=== PATIENT | female | born 2005 | race Caucasian/White ===

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

== ENCOUNTER 2023-01-25 18:07 | Emergency (ER) | payer BC, SELFPAY ==
[2023-01-25 18:20] VITALS: BP 129/83; PULSE 83; RESP 20; TEMP 37.1; O2SAT 98; BMI 25.0
[2023-01-25 18:34] LABS: UTC Strep Screen (Rapid) Negative (Negative)
--- NOTE | 2023-01-25 18:43 | EXP.UTC ---
Discharge Plan Disposition Patient Disposition: Home, Self-Care Condition: Good Prescriptions Prescriptions: New cephalexin 250 mg/5 mL suspension for reconstitution 500 mg PO BID 5 Days Qty: 100 0RF Rx Instructions: was given a take home bottle for the first 5 days- take this after finishing the bottle given to her at [facility] No Action omeprazole 40 mg capsule,delayed release(DR/EC) 40 mg PO DAILY Patient Comments: TAKE 1 CAPSULE BY MOUTH ONCE DAILY bupropion HCl 150 mg tablet extended release 24 hr 150 mg PO DAILY Patient Comments: TAKE 1 TABLET BY MOUTH ONCE DAILY Referrals Follow up/Referrals: Boo Major MD [Primary Care Provider] - See instructions Activity Restrictions/Add. Instructions Additional Instructions/Restrictions: Increase fluids, water and not soda or tea. Can drink cranberry juice or cranberry extract. Wipe front to back Wear cotton underwear Empty bladder after intercourse Start antibiotics immediately and make sure you take the full course although you may start to see improvement over the next 48 hours. You can eat yogurt or take probiotics to decrease diarrhea or yeast infection caused by the antibiotic Be sure to follow-up anytime for new or worsening symptoms in 48 hours for wound urine culture results be sure to let you PCP no recent urine for culture so they can request records and ensure that you have appropriate antibiotic if you are not getting better or getting worse. If symptoms worsen or do not improve return or be seen in the ER. Follow-up with primary care this week. Start antibiotic patient to take as ordered for a full length of time even if you feel better. Sinus infections do not get better overnight. It may take 2-3 days to notice much improvement so be sure to use conservative measures as discussed for symptoms. Increase fluids Humidifier/vaporizer as needed Tylenol and ibuprofen as needed for fever or pain. If symptoms do not improve or get worse return or be seen in the ER Follow-up with primary care this week Clinical Impressions Clinical Impression: Acute maxillary sinusitis Qualifiers: Recurrence: non-recurrent Qualified Code(s): J01.00 - Acute maxillary sinusitis, unspecified UTI (urinary tract infection) Qualifiers: Urinary tract infection type: site unspecified Hematuria presence: without hematuria Qualified Code(s): N39.0 - Urinary tract infection, site not specified Stand Alone Forms Stand Alone Forms: Work/School Release Instructions Patient Instructions: DI for Sinusitis, DI for Urinary Tract Infection (UTI) Discharge ED Provider: Tru ([facility])Nehal [facility] [place] HPI General Stated complaint: sore throat,CHILDERS , pressure in ears Mode of Arrival: Ambulatory Source of Information: Patient Limitations: No Limitations Time Seen by Provider: 01/25/23 18:43 Description of Symptoms (Recalled from Triage Doc. by RN): PATIENT C/O SORE THROAT, HEADACHE, CLOGGED EARS, RUNNY NOSE, SNEEZING, CONGESTION AND COUGH X 3-4 DAYS HEENT Symptoms (Recalled from RN notes): Yes Resp Symptoms (Recalled from RN notes): Yes Skin Symptoms (Recalled from RN notes): No MS Symptoms (Recalled from RN notes): No Functional Status (Recalled from RN notes): WNL History of Present Illness Provider Complaint: 18 yr old female presents for burning with voiding,sore throat,childers, clogged ears, hoarseness, thick green nasal congestion and cough for 4 days. pt states she was given keflex antibiotics for uti but stopped after 2 days because she couldnt swallow pills and she is still having symptoms Related Data Home Medications Medication Instructions Recorded Confirmed bupropion HCl 150 mg 24 hr tablet, 150 mg PO DAILY Anxiety 01/25/23 01/25/23 extended release omeprazole 40 mg capsule,delayed 40 mg PO DAILY GERD 01/25/23 01/25/23 release Previous Rx's Medication Instructions Recorded cephalexin 250 mg/5 mL oral 500 mg (10 mL) PO BID 5 days #100
[2023-01-25 18:50] VITALS: BP 129/83; PULSE 83; RESP 20; TEMP 37.1; O2SAT 98
== END 2023-01-25 18:54 | disposition home or self-care (01) ==
PROVIDERS: Emergency Provider Nurse Practitioner Family; PCP Family Medicine
DX: J01.00 Acute maxillary sinusitis, unspecified (principal); N39.0 Urinary tract infection, site not specified; R07.0 Pain in throat; F41.9 Anxiety disorder, unspecified; F32.A Depression, unspecified
CPT/HCPCS: 87880; 99212; 99214; G0463

== ENCOUNTER 2023-08-30 20:32 | Emergency (ER) | payer BC, SELFPAY ==
[2023-08-30 20:44] VITALS: BP 134/93; PULSE 104; RESP 18; TEMP 36.9; O2SAT 99; BMI 21.9
--- NOTE | 2023-08-30 20:47 | ED_ITS ---
Discharge Plan Disposition Patient Disposition: Home, Self-Care Prescriptions Prescriptions: No Action omeprazole 40 mg capsule,delayed release(DR/EC) 40 mg PO DAILY Patient Comments: TAKE 1 CAPSULE BY MOUTH ONCE DAILY bupropion HCl 150 mg tablet extended release 24 hr 150 mg PO DAILY Patient Comments: TAKE 1 TABLET BY MOUTH ONCE DAILY cephalexin 250 mg/5 mL suspension for reconstitution 500 mg PO BID 5 Days Qty: 100 0RF Rx Instructions: was given a take home bottle for the first 5 days- take this after finishing the bottle given to her at [facility] Referrals Follow up/Referrals: Boo Major MD [Primary Care Provider] - See instructions Activity Restrictions/Add. Instructions Additional Instructions/Restrictions: Call your family doctor to establish care for this visit to the emergency department and schedule follow-up within 48 hours to ensure improvement. If you have any worsening of your condition or any other concerning signs or symptoms, return to the emergency department or your primary care doctor for further evaluation. Antibiotic 3 times daily for 5 days, use warm compresses and massage your eye multiple times per day. Be sure to focus on scrubbing the base of your eyelashes while doing this. Clinical Impressions Clinical Impression: Hordeolum Qualifiers: Hordeolum type: internum Laterality: right Eyelid: lower Qualified Code(s): H00.022 - Hordeolum internum right lower eyelid Discharge ED Provider: Gerson Waldron General Adult HPI General Chief complaint: Eye Problems Stated complaint: Right eye pain and swelling Time Seen by Provider: 08/30/23 20:39 Mode of Arrival: Ambulatory Source of Information: Patient Limitations: No Limitations Description of Symptoms (Recalled from ER Triage Doc. by RN): Pt to ED with c/o right eye pain/swelling X1 week after using eyeliner. History of Present Illness HPI narrative: Is a 18-year-old female presenting with swelling to her right lower eyelid has been going on for about a week and getting worse. She uses eyeliner daily. No fevers or chills, vision changes, facial swelling, or any other concerns. Related Data Home Medications Medication Instructions Recorded Confirmed bupropion HCl 150 mg 24 hr tablet, 150 mg PO DAILY Anxiety 01/25/23 01/25/23 extended release omeprazole 40 mg capsule,delayed 40 mg PO DAILY GERD 01/25/23 01/25/23 release Previous Rx's Medication Instructions Recorded cephalexin 250 mg/5 mL oral 500 mg (10 mL) PO BID 5 days #100 01/25/23 suspension mL Allergies Allergy/AdvReac Type Severity Reaction Status Date / Time No Known Allergies Allergy Verified 08/16/21 11:51 [facility] Disclaimer: The information contained in this section may have been updated after the patient was seen, as this information can be updated by other users. Medical History , BIOLOGICAL SCIENCE TECHNICIAN FISH) Anxiety Depression UTI (urinary tract infection) Surgical History , BIOLOGICAL SCIENCE TECHNICIAN FISH) History of tonsillectomy History of tympanostomy tube placement Social History , BIOLOGICAL SCIENCE TECHNICIAN FISH) Smoking Status: Current every day smoker alcohol intake: never current occupational status: student Travel in the last 8 weeks: None ROS Obtained: Yes All systems reviewed & no additional complaints except as documented Physical Exam General General appearance: alert and in no apparent distress Head Head exam: atraumatic and normocephalic Eye Eye exam: Present PERRL, EOMI and other (Internal hordeolum right lower eyelid laterally. No drainage, but associated conjunctival injection. Vision intact) ENT ENT exam: Present mucous membranes moist Neck Neck exam: Present normal inspection, full ROM and trachea midline Respiratory Respiratory exam: Absent respiratory distress, wheezes, stridor, accessory muscle use or prolonged expiratory phase Cardiovascular Cardiovascular exam: Present normal rhythm Abdominal Exam Abdominal exam: Present soft; Absent distention, tenderness, guarding, rebound or rigidity Extremities Exam Extremities exam: Absent edema Neurological Exam Neurological exam: Present alert, oriented X3, CN II-XII intact and normal gait; Absent motor sensory deficit Skin Skin exam: Present warm and dry; Absent diaphoresis or erythema Medical Decision Making Medical Records Medical records reviewed: Yes I reviewed the patient's medical records. Gio Inquiry Pt receiving controlled substance: No Gio was queried for this patient: No Vital Signs: 08/30/23 20:44 Temperature 98.4 F Temperature Source Oral Pulse Rate [Left Radial] 104 H Respiratory Rate 18 Blood Pressure [Right Arm] 134/93 H Blood Pressure Mean [Right Arm] 106 Blood Pressure Source [Right Arm] Automatic Cuff Blood Pressure Position [Right Arm] Sitting 02 Sat by Pulse Oximetry 99 Oxygen Delivery Method Room Air Orders (Tests/Meds): ED MEDICATIONS Generic Name Dose Route Start Last Admin Trade Name Laura PRN Reason Stop Dose Admin Erythromycin 1 gm 08/30/23 20:46 Erythromycin Base 1 Gm Oint...G. OP 08/30/23 20:47 ONCE ONE Medical Decision Narrative: Is a 18-year-old female presenting with swelling to her right lower eyelid has been going on for about a week and getting worse. She uses eyeliner daily. No fevers or chills, vision changes, facial swelling, or any other concerns. History obtained with patient. On arrival, patient hemodynamically stable, afebrile, anxious, but mildly tachycardic. She has internal hordeolum on the right lower/lateral aspect of her eyelid. No vision changes, EOMs intact. Because patient well-appearing, deemed appropriate for outpatient management. She is recommended that she put erythromycin ointment and 3 times daily patient voices understanding. Because patient at baseline without signs or symptoms of clinical decompensation, deemed appropriate for discharge. Results were relayed to patient who voiced understanding and were agreeable to outpatient management and follow up. At the time of discharge the patient was hemodynamically stable, tolerating PO, and mobilizing appropriately. Critical Care Critical Care Time Critical Care Time: No
[2023-08-30] MEDS: ERYTHROMYCIN BASE 1 GM OINT...G. OP (20:50)
[2023-08-30 20:55] VITALS: BP 134/93; PULSE 104; RESP 18; TEMP 36.9; O2SAT 99
== END 2023-08-30 20:56 | disposition home or self-care (01) ==
PROVIDERS: Emergency Provider Emergency Medicine; PCP Family Medicine
DX: H00.022 Hordeolum internum right lower eyelid (principal); F17.210 Nicotine dependence, cigarettes, uncomplicated
CPT/HCPCS: 99283

== ENCOUNTER 2024-01-04 12:52 | Emergency (ER) | payer BC, SELFPAY ==
--- NOTE | 2024-01-04 13:09 | EXP.UTC ---
Discharge Plan Disposition Patient Disposition: Home, Self-Care Condition: Good Prescriptions Prescriptions: New phenazopyridine [Pyridium] 200 mg tablet 200 mg PO Q8H 2 Days Qty: 6 0RF ondansetron 4 mg Tablet,Disintegrating 4 mg PO Q8H PRN (Reason: Nausea) Qty: 9 0RF cefdinir 250 mg/5 mL suspension for reconstitution 300 mg PO BID 7 Days Qty: 84 0RF No Action omeprazole 40 mg capsule,delayed release(DR/EC) 40 mg PO DAILY Patient Comments: TAKE 1 CAPSULE BY MOUTH ONCE DAILY bupropion HCl 150 mg tablet extended release 24 hr 150 mg PO DAILY Patient Comments: TAKE 1 TABLET BY MOUTH ONCE DAILY cephalexin 250 mg/5 mL suspension for reconstitution 500 mg PO BID 5 Days Qty: 100 0RF Rx Instructions: was given a take home bottle for the first 5 days- take this after finishing the bottle given to her at [facility] Referrals Follow up/Referrals: Madeleine Melo MD [Primary Care Provider] - See instructions Activity Restrictions/Add. Instructions Additional Instructions/Restrictions: Drink plenty of fluids. Take tylenol or ibuprofen for pain or fever. Take the medications as directed. Follow up with your regular doctor. GO TO THE ER FOR ANY WORSENING SYMPTOMS The pyridium will make your urine turn orange, this is an expected side effect. It will stain your clothes if it comes into contact with them. We will culture the urine. That will tell what bacteria is causing your infection and which antibiotics will treat it best. Sometimes the first antibiotic we prescribe turns out to not work against different bacteria. So, make sure you follow up within 3 days if you are not getting better. Clinical Impressions Clinical Impression: UTI (urinary tract infection) Qualifiers: Urinary tract infection type: site unspecified Hematuria presence: without hematuria Qualified Code(s): N39.0 - Urinary tract infection, site not specified Stand Alone Forms Stand Alone Forms: Work/School Release Instructions Patient Instructions: Urinary Tract Infection, DI for Urinary Tract Infection (UTI), Phenazopyridine, Cephalexin, Fluconazole Discharge ED Provider: Christophe Dyer [facility] [place] HPI General Stated complaint: painful urination, blood in urine, lower back pain Time Seen by Provider: 01/04/24 13:09 History of Present Illness Provider Complaint: She states that for the past 3 days she has had worsening dysuria and urinary frequency. Related Data Home Medications Medication Instructions Recorded Confirmed bupropion HCl 150 mg 24 hr tablet, 150 mg PO DAILY Anxiety 01/25/23 01/25/23 extended release omeprazole 40 mg capsule,delayed 40 mg PO DAILY GERD 01/25/23 01/25/23 release Previous Rx's Medication Instructions Recorded cephalexin 250 mg/5 mL oral 500 mg (10 mL) PO BID 5 days #100 01/25/23 suspension mL cefdinir 250 mg/5 mL oral 300 mg (6 mL) PO BID 7 days #84 mL 01/04/24 suspension ondansetron 4 mg disintegrating 4 mg PO Q8H PRN Nausea #9 tabs 01/04/24 tablet phenazopyridine 200 mg tablet 200 mg PO Q8H 2 days #6 tabs 01/04/24 (Pyridium) Allergies Allergy/AdvReac Type Severity Reaction Status Date / Time No Known Allergies Allergy Verified 08/16/21 11:51 [facility] Disclaimer: The information contained in this section may have been updated after the patient was seen, as this information can be updated by other users. Medical History , [employer] & PRESIDENT) Anxiety Depression UTI (urinary tract infection) Surgical History , [employer] & PRESIDENT) History of tonsillectomy History of tympanostomy tube placement Social History Smoking Status: Current every day smoker alcohol intake: never current occupational status: student Travel in the last 8 weeks: None ROS Obtained: Yes All systems reviewed & no additional complaints except as documented Constitutional Constitutional: Reports system reviewed and no additional complaints, except as documented, Denies chills and Denies fever(s) Eyes Eyes: Denies eye discharge ENT Ears, Nose, Mouth, and Throat: Denies dysphagia, Denies sore throat and Denies throat swelling Cardiovascular Cardiovascular: Denies chest pain and Denies dyspnea Respiratory Respiratory: Denies chest congestion, Denies cough and Denies dyspnea Gastrointestinal Gastrointestingal: Denies abdominal pain, constipation, diarrhea, dysphagia, nausea or vomiting Genitourinary Female Genitourinary: Reports as per HPI, Reports dysuria, Reports urinary frequency, Denies urinary incontinence, Reports urinary hesitancy and Reports urinary urgency Musculoskeletal Musculoskeletal: Denies arthralgias and Reports back pain Integumentary/Breasts Skin/Breast: Denies rash Neurologic Neurologic: Denies paresthesias Allergic/Immunologic Allergic/Immunologic: Denies throat swelling Physical Exam General General appearance: alert and in no apparent distress Head Head exam: atraumatic and normocephalic Eye Eye exam: Present normal appearance, PERRL and EOMI ENT ENT exam: Present normal exam, mucous membranes moist, TM's normal bilaterally and normal external ear exam Neck Neck exam: Present normal inspection, full ROM and trachea midline; Absent tenderness, meningismus or lymphadenopathy Chest Chest inspection: Present normal inspection and symmetric chest wall rise; Absent tenderness Respiratory Respiratory exam: Present normal lung sounds bilaterally; Absent respiratory distress, wheezes or stridor Cardiovascular Cardiovascular exam: Present regular rate, normal rhythm and normal heart sounds Abdominal Exam Abdominal exam: Present soft and normal bowel sounds; Absent distention, tenderness, guarding, rebound, rigidity, incision, psoas sign, obturator sign, heel tap sign, Lewis's sign, Rovsing's sign or tenderness at McBurney's Point Extremities Exam Extremities exam: Present normal inspection, full ROM and normal capillary refill; Absent tenderness, edema, joint swelling, calf tenderness or cyanosis Back Exam Back exam: Present normal inspection and full ROM; Absent tenderness, CVA tenderness (R) or CVA tenderness (L) Neurological Exam Neurological exam: Present alert, oriented X3 and normal gait Psychiatric Psychiatric exam: Present normal affect and normal mood Skin Skin exam: Present warm, dry, intact and normal color Lymphatic Lymphatic Findings: no adenopathy Medical Decision Making Medical Records Medical records reviewed: No I reviewed the patient's medical records. Gio Inquiry Pt receiving controlled substance: No Lab Data Lab results reviewed: Yes I reviewed the patient's lab results.
[2024-01-04 13:14] VITALS: BP 147/84; PULSE 60; RESP 16; TEMP 36.8; O2SAT 100; BMI 23.6
[2024-01-04 13:18] LABS: Apearance,Urine Clear (Clear); Bilirubin,Urine Negative (Negative); Blood, Urine 3+ (Negative); Color,Urine Yellow (Yellow); Glucose,Urine (UA) Negative (Negative); Ketones,Urine Negative (Negative); PH,Urine 6.5 (5.0-8.5); Protein,Urine Negative (Negative); UTC Leukocyte Esterase,Urine 3+ (Negative); UTC Nitrate,Urine Negative (Negative); Urobilinogen,Urine 0.2 EU/dl (0.2)
[2024-01-04 13:58] VITALS: BP 147/84; PULSE 60; RESP 16; TEMP 36.8; O2SAT 100
--- NOTE | 2024-01-06 10:06 | PC.NURSE ---
REVIEWED URINE CULTURE WITH Liz NICHOLAS APRN, NO CHANGE NEEDED
== END 2024-01-04 13:59 | disposition home or self-care (01) ==
PROVIDERS: Emergency Provider Nurse Practitioner Family; PCP Obstetrics & Gynecology
DX: N39.0 Urinary tract infection, site not specified (principal); B95.2 Enterococcus as the cause of diseases classified elsewhere; R30.9 Painful micturition, unspecified; R35.0 Frequency of micturition; R30.0 Dysuria; M54.59 Other low back pain
CPT/HCPCS: 81003; 87086; 87088; 87186; 99212; 99214; G0463

== ENCOUNTER 2024-10-12 15:02 | Emergency (ER) | payer BC, SELFPAY ==
[2024-10-12 15:12] VITALS: BP 121/90; PULSE 90; RESP 17; TEMP 36.8; O2SAT 98; BMI 23.7
[2024-10-12 15:54] VITALS: BP 121/81; PULSE 91; RESP 18; TEMP 36.9; O2SAT 99
--- NOTE | 2024-10-12 15:55 | ED_ITS ---
Discharge Plan Disposition Patient Disposition: Home, Self-Care Prescriptions Prescriptions: New triamcinolone acetonide 0.1 % lotion 1 applic topical TID PRN (Reason: itching) Qty: 60 0RF No Action methylprednisolone 4 mg tablets,dose pack 4 mg PO DIRECTED Referrals Follow up/Referrals: Antoinette Ramirez MD [Primary Care Provider] - See instructions Activity Restrictions/Add. Instructions Additional Instructions/Restrictions: At this time it was felt you are safe to be discharged home. If new or worsening symptoms please do not hesitate to return the emergency department. Please apply your topical steroids as prescribed and follow-up with your family doctor in 2 weeks. This can last anywhere from 2 weeks to 3 months. For itching please take an [id number] antihistamine such as Benadryl or Nikkie. Topical calamine lotion as well as oatmeal baths may help. Clinical Impressions Clinical Impression: Pityriasis rosea Stand Alone Forms Stand Alone Forms: Work/School Release Instructions Patient Instructions: DI for Skin Abscess Print Language Print Language: Welsh Discharge ED Provider: Kwaku Paris General Adult HPI General Chief complaint: Skin/Abscess/Foreign Body Stated complaint: Rash over chest and back very itchy Time Seen by Provider: 10/12/24 15:26 Mode of Arrival: Family Vehicle Source of Information: Patient, Relative and Medical Record Description of Symptoms (Recalled from ER Triage Doc. by RN): Pt c/o itchy, pustle rash to chest, abd, back, neck, hairline, upper lip, BUE, and neck. Pt states it has been present for approx 2 wk. The past wk has increased spreading and itchiness. She was seen at PCP office yesterday and receveied at [facility]. Pt has been using triamcinilone and hydrocortisone cream wo much relief. She did take Xyzal last night. History of Present Illness HPI narrative: Patient is a 19-year-old female with no pertinent past medical history presents emergency department for evaluation of an itchy rash. It started on her lower back approximately 2 weeks ago and has insidiously wrapped around her back and trunk causing significant itching causing her to present here for evaluation. She has used some old triamcinolone cream that has not abated symptoms to an acceptable level. No new discrete foods although she has been eating more chocolate and nuts than normal, outdoor exposure, clothing, medications. No family members with similar symptoms in the household. No other acute complaints at this time. Please note that above description of symptoms, in this electronic medical record under categorization of recalled from ER triage doctor by RN are reflective of an initial nursing assessment, however, is not reflective of my full history and physical exam that was personally taken and clarified. Consequentially, this preceding description of symptoms, which may include the patient's categorized chief complaint in the EMR, do not reflect my personal clinical impression, and the ultimate description of history of present illness and patient stated complaints should be deferred to this section of the note. Unless stated otherwise or congruent with this section of the note, additional signs, symptoms, or incongruence should be interpreted as inaccurate with my clinical impression. Related Data Home Medications ?Medication ?Instructions ?Recorded ?Confirmed methylprednisolone 4 mg tablets in 4 mg PO DIRECTED dose pack 10/12/24 10/12/24 a dose pack Previous Rx's ?Medication ?Instructions ?Recorded triamcinolone acetonide 0.1 % 1 applic topical TID PRN itching 10/12/24 lotion #60 mL Allergies Allergy/AdvReac Type Severity Reaction Status Date / Time No Known Allergies Allergy Verified 08/16/21 11:51 [facility] Disclaimer: The information contained in this section may have been updated after the patient was seen, as this information can be updated by other users. Medical History (Reviewed 01/25/23 @ 18:45 by Nehal Ott ([facility]), AFFILIATE MARKETING SPECIALIST) Anxiety Depression UTI (urinary tract infection) Surgical History (Reviewed 01/25/23 @ 18:45 by Nehal Ott ([facility]), AFFILIATE MARKETING SPECIALIST) History of tonsillectomy History of tympanostomy tube placement Social History Smoking Status: Current every day smoker alcohol intake: never current occupational status: student Travel in the last 8 weeks: None Have you lived/traveled outside US in past 30 days?: No Contact w/someone who lives/traveled outside US past 30 days?: No Exposure to someone with infectious disease in past 14 days?: No Do you have a fever (greater than 100.4 F or 38 C)?: No Have you tested positive for COVID-19: No Exposed to someone with COVID-19 in past 14 days?: No Do you have a sore throat?: No Do you have a cough?: No Do you have any weakness?: No Do you have any diarrhea?: No Are you experiencing any unusual bleeding?: No Do you have any muscle aches/pain?: No Do you have any abdominal pain?: No Are you experiencing loss of taste or smell?: No Other Medical History Have you received the Pneumonia Vaccine: No ROS Obtained: Yes Systems reviewed as appropriate & no additional complaints except as documented Physical Exam General General appearance: alert and in no apparent distress Head Head exam: atraumatic and normocephalic Eye Eye exam: Present PERRL and EOMI ENT ENT exam: Present mucous membranes moist Neck Neck exam: Present normal inspection Chest Chest inspection: Present normal inspection and symmetric chest wall rise Respiratory Respiratory exam: Absent respiratory distress Cardiovascular Cardiovascular exam: Present regular rate and normal rhythm Abdominal Exam Abdominal exam: Present soft; Absent tenderness Neurological Exam Neurological exam: Present alert Psychiatric Psychiatric exam: Present normal affect Skin Skin exam: Present warm, dry and rash (Scattered maculopapular rash with geographic distribution concentrated on the trunk and back in a diagonal distribution with a larger patch on the left lower back. Intermittent lesions over the upper extremities.) Medical Decision Making Medical Records Screening: Per USPSTF and CDC recommendations, given the prevalence of disease in our region, it is our hospital?s policy to screen for HIV and viral Hepatitis for all patients aged 18 and over and those with ongoing risk factors. Gio Inquiry Pt receiving controlled substance: No Vital Signs: 10/12/24 15:12 Temperature 98.2 F Temperature Source Oral Pulse Rate [Right] 90 Respiratory Rate 17 Blood Pressure [Right Arm] 121/90 Blood Pressure Mean [Right Arm] 100 Blood Pressure Source [Right Arm] Automatic Cuff 02 Sat by Pulse Oximetry 98 Oxygen Delivery Method Room Air Medical Decision Narrative: In summary patient is a 19-year-old female with past medical history described above who presents emergency department for evaluation of rash. Patient is hemodynamically stable nontoxic-appearing upon arrival, afebrile. Her rash is consistent with pityriasis rosea with herald patch formation. Workup with hematologic labs and imaging was considered but will be deferred given that clinically it is consistent with this diagnosis. Patient was educated as to how long this may last and was given a prescription for steroids topically. Patient was given return precautions and verbalized understanding. Technology Infusion Specialist disclaimer Much of this encounter note is an electronic boat rental clerk spoken language to printed text. Electronic boat rental clerk of the spoken language may permit errors. Although I have reviewed the note, some errors may still exist. Critical Care Critical Care Time Critical Care Time: No
== END 2024-10-12 15:56 | disposition home or self-care (01) ==
PROVIDERS: Emergency Provider Emergency Medicine; PCP Family Medicine
DX: L42 Pityriasis rosea (principal)
CPT/HCPCS: 99283